=== PATIENT | female | born 1935 | race Caucasian/White ===

== ENCOUNTER → 2017-05-09 | Outpatient (CLI) | payer MEDICARE, BC ==
--- NOTE | 2017-05-09 09:22 | CT ---
EXAMINATION TYPE: CT ChestAbdPelvis w con DATE OF EXAM: 05/09/2017 COMPARISON: NONE HISTORY: elevated liver function test, dysphagia CT DLP: 665.5 mGycm. Automated Exposure Control for Dose Reduction was Utilized. CONTRAST: CT scan of the thorax, abdomen and pelvis is performed with IV Contrast, patient injected with 100 mL of Omnipaque 300. FINDINGS: LUNGS: Multifocal bilateral areas of subpleural groundglass opacity and reticulation are seen in both dependent and nondependent distributions with more focal areas of groundglass opacity in the lingula on series 4 image 32 and left upper lobe on series 4 image 23 and 24 as well as within the right keshia g apex on series 4 image 15 for which surveillance is recommended. Additionally there is a 3 mm spicu lated appearing pulmonary nodule on series 4 image 23 and on coronal image 34 series 7. No pulmonary mass is identified. Biapical pleural thickening is noted. Dependent airspace opacities at the lung ba ses are thought to represent subsegmental atelectasis. Perifissural atelectasis is also noted. Ther e is no pleural effusion or pneumothorax seen. The tracheobronchial tree is patent. Single calcified granuloma is seen with surrounding fibrosis in the lingula on series 4 image 32 MEDIASTINUM: There are multiple prominent lymph nodes measuring 9 mm in short axis in the prevascular space, left paratracheal space, and right paratracheal space. Additionally there is a conglomeration of lymph nodes within the right hilum measuring 1.2 x 2.0 cm. No axillary adenopathy or internal briseyda brittney adenopathy. Cardiac size is within normal limits as is the ascending aorta. Moderate calcific at heromatous changes are seen of the thoracic aorta and great vessels. No pericardial effusion is see n. LIVER/GB: The liver is mildly hypoattenuated in comparison to the splenic parenchyma compatible with mild hepatic steatosis. No intrahepatic biliary ductal dilatation is seen. More focal geographic area of hypoattenuation is seen near the fissure for the ligamentum teres representing superimposed focal fatty infiltration. 2 small to accurately characterize rCommon 4 mm area of hypoattenuation is seen within the left lobe of the liver and series 5 image 14 bile duct is within normal limits for the pat ient's age measuring 7 mm on coronal images. No radiopaque calculi are seen within the gallbladder nenita men. PANCREAS: No pancreatic ductal dilatation. Pancreas enhances homogeneously. SPLEEN: No significant abnormality is seen. ADRENALS: No significant abnormality is seen. KIDNEYS: Kidneys enhance and excrete symmetrically without hydronephrosis. BOWEL: Evaluation of the pelvic structures is limited secondary to extensive spray artifact from bila teral hip prostheses. Remainder of the bowel is unremarkable with no dilation. Appendix is retrocecal and within normal limits of size. LYMPH NODES: No greater than 1cm abdominal or pelvic lymph nodes are appreciated. OSSEOUS STRUCTURES: Grade 2 anterolisthesis of L4 and L5 is seen with pars interarticularis defects a nd endplate sclerosis. Multilevel degenerative endplate changes, facet arthropathy and small anterior osteophytes are seen of the thoracolumbar spine. Bilateral femoral arthroplasties creates spray mary fact and partially obscure surrounding visualization. There is a dextroscoliotic curvature of the lum bar spine. OTHER: Abdominal aorta is of normal course and caliber with moderate atherosclerosis of the abdominal aorta and its branches. IMPRESSION: 1. Findings compatible with mild hepatic steatosis. Additional 2 small to characterize 4 mm hepatic l esion is noted. 2. 3 mm right upper lobe spiculated nodule for which short-term follow-up CT is recommended in 6 darryl hs for evaluation of interval growth. Additionally multifocal groundglass opacities in a subpleural d istribution are favored to represent atelectasis and underlying interstitial lung disease, however kent rveillance is also recommended for these opacities notably within the left upper lobe and right lung apex. 3. Grade 2 anterolisthesis of L4 on L5 secondary to bilateral pars interarticularis defects.
== END ==
LOC: RADCTMAIN 07:11
PROVIDERS: ATTEND Internal Medicine
DX: K76.9 Liver disease, unspecified (principal); R91.1 Solitary pulmonary nodule; J84.9 Interstitial pulmonary disease, unspecified
CPT/HCPCS: 71260; 74177; Q9967

== ENCOUNTER → 2017-05-12 | Outpatient (CLI) | payer MEDICARE, BC ==
--- NOTE | 2017-05-12 11:47 | FL ---
Modified barium swallow. HISTORY: Dysphagia. Modified barium swallow was performed with the department of speech pathology. The patient was prese nted with various consistencies of barium. There is consistent penetration with thin liquid barium. No evidence for aspiration. Ventral spondylo sis C3-4 level. Full report is to follow from the department of speech pathology. Impression: There is consistent penetration with thin liquid barium.
== END | disposition home or self-care (01) ==
LOC: RADFLMAIN 10:40
PROVIDERS: ATTEND Internal Medicine
DX: R13.10 Dysphagia, unspecified (principal)
CPT/HCPCS: 74230

== ENCOUNTER → 2017-06-09 | Outpatient (CLI) | payer MEDICARE, BC ==
--- NOTE | 2017-06-20 11:21 | MM ---
Reason for exam: screening (asymptomatic). Last mammogram was performed 5 years and 2 months ago. History: Patient is postmenopausal. Family history of breast cancer in daughter. 2 benign excisional biopsies of the left breast. Physical Findings: A clinical breast exam by your physician is recommended on an annual basis and results should be correlated with mammographic findings. MG Screening Mammo w CAD Bilateral CC and MLO view(s) were taken. Prior study comparison: April 14, 2012, mammogram, performed at [facility]. August 16, 2010, mammogram, performed at [facility]. The breast tissue is heterogeneously dense. This may lower the sensitivity of mammography. No significant changes when compared with prior studies. ASSESSMENT: Negative, BI-RAD 1 RECOMMENDATION: Routine screening mammogram of both breasts in 1 year.
== END | disposition home or self-care (01) ==
LOC: RADMAMWWP 15:00
PROVIDERS: ATTEND Internal Medicine
DX: Z12.31 Encounter for screening mammogram for malignant neoplasm of breast (principal)

== ENCOUNTER → 2017-08-20 | Outpatient (CLI) | payer MEDICARE, BC ==
[2017-08-20 13:14] LABS: Albumin 4.1 g/dL (3.5-5.0); Bilirubin, Delta 0.3 mg/dL (0.0-0.2); Bilirubin,Unconjugated 0.3 mg/dL (0.0-1.1); Total Bilirubin 0.6 mg/dL (0.2-1.3); Total Protein 7.3 g/dL (6.3-8.2)
== END | disposition home or self-care (01) ==
LOC: LABWHC1 12:05
DX: K76.0 Fatty (change of) liver, not elsewhere classified (principal)
CPT/HCPCS: 36415; 80076; 82105

== ENCOUNTER → 2018-03-30 | Outpatient (CLI) | payer MEDICARE, BC ==
[2018-03-30 11:41] LABS: Basophils # (A) 0.1 k/uL (0-0.2); Basophils % (A) 1 %; Eosinophils # (A) 0.2 k/uL (0-0.7); Eosinophils % (A) 3 %; HCT 39.1 % (34.0-46.0); HGB 13.1 gm/dL (11.4-16.0); Lymphocytes # (A) 1.5 k/uL (1.0-4.8); Lymphocytes % (A) 28 %; MCHC 33.5 g/dL (31.0-37.0); MCV 98.4 fL (80.0-100.0); Mean Platelet Volume 7.1; Monocytes # (A) 0.4 k/uL (0-1.0); Monocytes % (A) 8 %; Neutrophils # (A) 3.1 k/uL (1.3-7.7); Neutrophils % (A) 57 %; Platelet Count 308 k/uL (150-450); RBC 3.97 m/uL (3.80-5.40); RDW 14.4 % (11.5-15.5); WBC 5.5 k/uL (3.8-10.6)
[2018-03-30 11:52] LABS: ALT 19 U/L (9-52); AST 23 U/L (14-36); Albumin 3.8 g/dL (3.5-5.0); Anion Gap 7 mmol/L; Blood Urea Nitrogen 17 mg/dL (7-17); C Reactive Protein <5.0 mg/L (<10.0); Calcium 9.5 mg/dL (8.4-10.2); Carbon Dioxide 26 mmol/L (22-30); Chloride 107 mmol/L (98-107); Potassium 5.1 mmol/L (3.5-5.1); Sodium 140 mmol/L (137-145); Total Bilirubin 0.6 mg/dL (0.2-1.3)
[2018-03-30 14:41] LABS: Erythrocyte Sedimentation Rate 8 mm/hr (0-20)
== END | disposition home or self-care (01) ==
LOC: LABWHC1 10:46
PROVIDERS: ATTEND Internal Medicine Rheumatology
DX: M06.4 Inflammatory polyarthropathy (principal); M05.79 Rheumatoid arthritis with rheumatoid factor of multiple sites without organ or systems involvement
CPT/HCPCS: 36415; 80051; 82040; 82247; 82310; 82565; 84450; 84460; 84520; 85025; 85652; 86140

== ENCOUNTER → 2018-03-30 | Outpatient (CLI) | payer MEDICARE, BC ==
--- NOTE | 2018-03-30 14:09 | CT ---
EXAMINATION TYPE: CT chest abdomen wo con DATE OF EXAM: 03/30/2018 INDICATION: Lung nodule, liver disease COMPARISON: 05/09/2017 CT DLP: 280.8 mGycm CONTRAST: Performed with Oral Contrast TECHNIQUE: Axial images at 5 mm thick sections. Reconstructed images in the coronal plane. Delayed images through the kidneys. FINDINGS: CT CHEST: Portion of the thyroid visualized is normal. A 0.4 cm nodularity is within the periphery of the right upper lobe. Series 4 image 23. This was pres ent previously measuring 0.3 cm. Apical changes are present and stable. An area of pneumonitis in the periphery of the right upper lobe is not evident on the current exam. No enlarged mediastinal or hilar adenopathy is evident. Scattered small lymph nodes are present. The ascending aorta diameter at the level of the main pulmonary artery is 3.6 cm. The main pulmonary artery diameter at the bifurcation is 3.[address] ABDOMEN: Liver: Normal Spleen: Normal Pancreas: Normal Adrenal glands: The adrenal glands are normal. Gallbladder: Normal Kidneys: No masses are evident. No hydronephrosis is present. No cysts are present. No renal stone s are identified. Aorta: Vascular calcification is within the aorta. Inferior vena cava: Normal. Loops of bowel is visualized normal. Some small bowel contrast filled loops are present left upper qu adrant. IMPRESSIONS: 1. Improving pneumonitis changes. 2. There is some persistence of areas of increased density such as a 0.4 cm nodule right upper lobe w hich was previously 0.3 cm and an area of pneumonitis in the posterior lateral left lung base which a ppears stable in size and appearance.
== END ==
LOC: RADCTMAIN 11:29
PROVIDERS: ATTEND Internal Medicine
DX: R91.1 Solitary pulmonary nodule (principal); J18.9 Pneumonia, unspecified organism; K76.89 Other specified diseases of liver
CPT/HCPCS: 71250; 74150

== ENCOUNTER → 2018-06-17 | Outpatient (CLI) | payer MEDICARE, BC ==
--- NOTE | 2018-06-17 13:30 | CT ---
EXAMINATION TYPE: CT brain wo con DATE OF EXAM: 06/17/2018 COMPARISON: 04/30/2017 HISTORY: Cervicalgia; Headache CT DLP: 1124.[address] of the brain was performed. The ventricles, basal cisterns and sulci overlying the cerebral convexities demonstrate mild enlargem ent. There is no evidence for intracranial hemorrhage or sulcal effacement. There is decreased attenuation about the periventricular white matter and deep white matter of both c erebral hemispheres, compatible with chronic small vessel ischemia. Differential diagnosis does inclu de demyelination. No mass effects are seen.No midline shift. Osseous calvarium is intact. If symptoms persist consider MRI. IMPRESSION: 1. Age related atrophic and chronic small vessel ischemic change without acute intracranial process s een at this time.
--- NOTE | 2018-06-17 13:36 | CT ---
EXAMINATION TYPE: CT soft tissue neck wo con DATE OF EXAM: 06/17/2018 COMPARISON: None HISTORY: Cerivacalgia, Headache CT DLP: 220.[address] of the neck was performed from the skull base through the lung apices. AIRWAY: The supraglottic, glottic, and subglottic portions of the airway appear patent and free of mass. SALIVARY GLANDS: The submandibular and parotid glands are free of mass or inflammatory process. THYROID GLAND: No nodules or masses seen. LYMPH NODES: No adenopathy seen greater than 1cm. LUNG APICES: No nodule or mass is seen. OTHER: Vascular structures are patent. Severe degenerative disc space narrowing and spondylosis exte nding from C3-4 through C6-7. Central stenosis suggested at C5-6. No abscess seen. IMPRESSION: 1. Severe degenerative change and spondylosis cervical spine with central stenosis identified at C5-6 .
== END | disposition home or self-care (01) ==
LOC: RADCTMAIN 12:36
PROVIDERS: ATTEND Internal Medicine
DX: M48.02 Spinal stenosis, cervical region (principal); M47.812 Spondylosis without myelopathy or radiculopathy, cervical region; G31.1 Senile degeneration of brain, not elsewhere classified; I67.82 Cerebral ischemia; M06.00 Rheumatoid arthritis without rheumatoid factor, unspecified site
CPT/HCPCS: 70450; 70490

== ENCOUNTER → 2018-08-21 | Outpatient (CLI) | payer MEDICARE, BC ==
[2018-08-21 14:37] LABS: Basophils # (A) 0.1 k/uL (0-0.2); Basophils % (A) 1 %; Eosinophils # (A) 0.1 k/uL (0-0.7); Eosinophils % (A) 2 %; HCT 39.4 % (34.0-46.0); HGB 12.9 gm/dL (11.4-16.0); Lymphocytes % (A) 26 %; MCH 33.2 pg (25.0-35.0); MCHC 32.9 g/dL (31.0-37.0); MCV 101.1 fL (80.0-100.0); Macrocytosis Slight; Mean Platelet Volume 7.6; Monocytes # (A) 0.5 k/uL (0-1.0); Monocytes % (A) 6 %; Neutrophils # (A) 4.8 k/uL (1.3-7.7); Neutrophils % (A) 62 %; Platelet Count 344 k/uL (150-450); RBC 3.89 m/uL (3.80-5.40); RDW 14.3 % (11.5-15.5); WBC 7.8 k/uL (3.8-10.6)
[2018-08-21 19:36] LABS: Albumin 4.1 g/dL (3.80-4.90); Anion Gap 8.3 mmol/L (4.00-12.00); Calcium 9.7 mg/dL (8.7-10.3); Carbon Dioxide 26.7 mmol/L (21.6-31.8); Potassium 4.7 mmol/L (3.5-5.5); Total Bilirubin 0.4 mg/dL (0.3-1.2)
== END | disposition home or self-care (01) ==
LOC: LABWHC1 13:26
PROVIDERS: ATTEND Internal Medicine Rheumatology
DX: M25.50 Pain in unspecified joint (principal); Z79.899 Other long term (current) drug therapy
CPT/HCPCS: 36415; 80051; 82040; 82247; 82310; 82565; 84450; 84460; 84520; 85025

== ENCOUNTER → 2018-10-15 | Outpatient (CLI) | payer MEDICARE, BC ==
--- NOTE | 2018-10-16 14:30 | MM ---
Reason for exam: screening (asymptomatic). Last mammogram was performed 1 year and 4 months ago. History: Patient is postmenopausal. Family history of breast cancer in daughter. 2 benign excisional biopsies of the left breast. Physical Findings: A clinical breast exam by your physician is recommended on an annual basis and results should be correlated with mammographic findings. MG Screening Mammo w CAD Bilateral CC and MLO view(s) were taken. Prior study comparison: June 09, 2017, bilateral MG screening mammo w CAD. April 14, 2012, mammogram, performed at [facility]. The breast tissue is heterogeneously dense. This may lower the sensitivity of mammography. Finding: There is an equal density (isodense), spiculated irregular mass in the subareolar position of the right breast on CC view. Not seen previously, MLO views appear stable. New finding since June 09, 2017 and April 14, 2012. ASSESSMENT: Incomplete: need additional imaging evaluation, BI-RAD 0 RECOMMENDATION: Special view mammogram of the right breast. If lesion persists on supplemental views, image directed ultrasound is recommended. [facility] will attempt to contact patient to return for supplemental views and ultrasound if indicated.
== END | disposition home or self-care (01) ==
LOC: RADMAMWWP 10:35
PROVIDERS: ATTEND Internal Medicine
DX: Z12.31 Encounter for screening mammogram for malignant neoplasm of breast (principal)
CPT/HCPCS: 77067

== ENCOUNTER → 2018-10-21 | Outpatient (CLI) | payer MEDICARE, BC ==
--- NOTE | 2018-10-21 15:10 | MM ---
Reason for exam: additional evaluation requested from abnormal screening. Last mammogram was performed less than 1 month ago. History: Patient is postmenopausal. Family history of breast cancer in daughter. 2 benign excisional biopsies of the left breast. Physical Findings: Nurse did not find any significant physical abnormalities on exam. MG Work Up Mamm w CAD RT Spot compression CC and LM view(s) were taken of the right breast. Prior study comparison: October 15, 2018, bilateral MG screening mammo w CAD. June 09, 2017, bilateral MG screening mammo w CAD. There is no discrete abnormality including area of concern. These results were verbally communicated with the patient and result sheet given to the patient on 10/21/18. ASSESSMENT: Negative, BI-RAD 1 RECOMMENDATION: Return to routine screening mammogram schedule for both breasts.
== END | disposition home or self-care (01) ==
LOC: RADMAMWWP 14:33
PROVIDERS: ATTEND Internal Medicine
DX: R92.8 Other abnormal and inconclusive findings on diagnostic imaging of breast (principal)
CPT/HCPCS: 77065

== ENCOUNTER → 2019-06-14 | Outpatient (CLI) | payer MEDICARE, BC ==
[2019-06-14 11:52] LABS: African American GFR (CKD) >90 (>60 ml/min/1.73 sqM); Blood Urea Nitrogen 15 mg/dL (7-17); Non-African American GFR(CKD) 81 (>60 ml/min/1.73 sqM)
--- NOTE | 2019-06-14 13:38 | CT ---
EXAMINATION TYPE: CT ChestAbdPelvis w con DATE OF EXAM: 06/14/2019 COMPARISON: March 30, 2018 HISTORY: Abnormal weight loss CT DLP: 1713 mGycm CONTRAST: CT scan of the chest, abdomen and pelvis is performed with Oral Contrast and with IV Contrast, patien t injected with 100 mL of Isovue 300. CT Chest: LUNGS: The lungs are clear and free of infiltrate or atelectasis. No pulmonary nodule or mass is det ected. No pleural effusion or CT evidence of interstitial lung disease. MEDIASTINUM: Thoracic aorta is of normal caliber. The heart is not enlarged. No evidence for media stinal mass or adenopathy. Scattered subpleural fibrosis noted. HILAR STRUCTURES: No evidence for mass. No hilar adenopathy is appreciated. OTHER: No significant abnormality. CONTRAST CT ABDOMEN AND PELVIS FINDINGS: LIVER/GB: No calcified gallstones. No space occupying hepatic lesion. Biliary tree is of normal ca liber. PANCREAS: No inflammation. No distinct mass. SPLEEN: No splenic enlargement. No lesion seen. ADRENALS: No nodule. No thickening. KIDNEYS/BLADDER: No hydronephrosis. No nephrolithiasis. No disctinct renal mass. BOWEL: Normal appendix. Normal bowel caliber. No inflammation. GENITAL ORGANS: No gross abnormality. LYMPH NODES: No greater than 1cm abdominal or pelvic lymph nodes are appreciated. AORTA: No significant abnormality. OSSEOUS STRUCTURES: Bilateral hip prosthesis noted. OTHER: No significant additional abnormality is seen. IMPRESSION: 1. No significant abnormality to account for the patient's history of weight loss.
== END | disposition home or self-care (01) ==
LOC: RADCTMAIN 10:00
PROVIDERS: ATTEND Internal Medicine
DX: R63.4 Abnormal weight loss (principal); Z72.0 Tobacco use
CPT/HCPCS: 36415; 71260; 74177; 82565; 84520

== ENCOUNTER → 2020-01-10 | Outpatient (CLI) | payer MEDICARE, BC ==
[2020-01-10 11:25] LABS: HCT 40.8 % (34.0-46.0); HGB 13.1 gm/dL (11.4-16.0); MCH 33.4 pg (25.0-35.0); MCHC 32.2 g/dL (31.0-37.0); MCV 103.5 fL (80.0-100.0); Macrocytosis Slight; Platelet Count 325 k/uL (150-450); RBC 3.94 m/uL (3.80-5.40); RDW 13.9 % (11.5-15.5); WBC 7.4 k/uL (3.8-10.6)
[2020-01-10 16:51] LABS: African American GFR (CKD) 79.6 (60.0-200.0); Anion Gap 6.6 mmol/L (4.00-12.00); Calcium 9.8 mg/dL (8.7-10.3); Carbon Dioxide 26.4 mmol/L (21.6-31.8); Non-African American GFR(CKD) 68.7 (60.0-200.0); Potassium 4.4 mmol/L (3.5-5.5)
[2020-01-10 16:56] LABS: T4, Free (Free Thyroxine) 1.1 ng/dL (0.80-1.80)
== END | disposition home or self-care (01) ==
LOC: LABWHC1 10:22
DX: E78.2 Mixed hyperlipidemia (principal)
CPT/HCPCS: 36415; 80048; 82239; 82550; 82607; 82610; 84439; 84443; 84481; 84550; 85027

== ENCOUNTER → 2020-12-08 | Outpatient (CLI) | payer MEDICARE, BC ==
[2020-12-08 11:40] LABS: HCT 42.2 % (37.2-46.3); MCHC 33.2 g/dL (32.0-37.0); MCV 96.6 fL (80.0-97.0); Mean Platelet Volume 10.9 fL (9.5-12.2); Platelet Count 301 X 10*3/uL (140-440); RBC 4.37 X 10*6/uL (4.10-5.20); RDW 14.2 % (11.5-14.5); WBC 8.34 X 10*3/uL (4.50-10.00)
[2020-12-08 13:14] LABS: T4, Free (Free Thyroxine) 1.1 ng/dL (0.80-1.80)
[2020-12-08 13:37] LABS: Calcium 9.5 mg/dL (8.7-10.3)
[2020-12-08 13:38] LABS: Chol/HDL Ratio 2.69; LDL Cholesterol,Calculated 63.6 mg/dL (0.0-131.0); VLDL Calculation 17.4 mg/dL (5.00-40.00)
== END | disposition home or self-care (01) ==
LOC: LABWHC1 07:23
PROVIDERS: ATTEND Internal Medicine
DX: I10 Essential (primary) hypertension (principal)
CPT/HCPCS: 36415; 80061; 82310; 82550; 84439; 84443; 84450; 84481; 84550; 85027

== ENCOUNTER → 2021-10-18 | Outpatient (CLI) | payer MEDICARE ==
--- NOTE | 2021-10-18 09:33 | CT ---
EXAMINATION TYPE: CT chest wo con DATE OF EXAM: 10/18/2021 COMPARISON: Prior CT June 14, 2019 HISTORY: Cough CT DLP: 169.2 mGycm. Automated Exposure Control for Dose Reduction was Utilized. TECHNIQUE: CT scan of the thorax is performed without IV contrast. FINDINGS: LUNGS: There is moderate to advanced peripheral reticulation and fibrotic changes bilaterally involvi ng the upper lungs through the bases all new or significantly more prominent from the 2019 exam. Some areas of honeycombing in the periphery are seen bilaterally. No pleural effusion or pneumothorax is evident. No suspicious focal consolidation. MEDIASTINUM: Lack of IV contrast is noted to limit evaluation for mediastinal and especially hilar ad enopathy. There are stable prominent borderline enlarged prevascular along with AP window and pericar inal lymph nodes. Mild cardiomegaly redemonstrated. Enlarged pulmonary arteries consistent with under lying pulmonary artery hypertension is again seen. No pericardial effusion. Some calcification at lev el of the mitral and aortic valve along with coronary artery calcification is present. Somewhat small size thyroid. Mild to moderate calcified plaque of the aorta extends into branch vessels. OTHER: Underlying scoliosis. IMPRESSION: Moderate to severe diffuse bilateral pulmonary fibrosis is new or significantly progresse d from the prior study
== END | disposition home or self-care (01) ==
LOC: RADCTMAIN 08:57
PROVIDERS: ATTEND Internal Medicine
DX: J84.10 Pulmonary fibrosis, unspecified (principal)
CPT/HCPCS: 71250

== ENCOUNTER → 2022-01-16 | Outpatient (CLI) | payer MEDICARE ==
[2022-01-16 10:49] LABS: HCT 41.2 % (37.2-46.3); HGB 13.5 g/dL (12.0-15.0); MCH 31.3 pg (27.0-32.0); MCHC 32.8 g/dL (32.0-37.0); MCV 95.6 fL (80.0-97.0); Mean Platelet Volume 10.9 fL (9.5-12.2); NRBC Per 100 WBC 0 /100 WBCS (0.0-0.0); Platelet Count 313 X 10*3/uL (140-440); RBC 4.31 X 10*6/uL (4.10-5.20); RDW 13.8 % (11.5-14.5); WBC 7.13 X 10*3/uL (4.50-10.00)
[2022-01-16 15:02] LABS: African American GFR (CKD) 85.1 (60.0-200.0); Albumin 3.9 g/dL (3.8-4.9); Albumin/Globulin Ratio 1.25 (1.60-3.17); BUN/Creat Ratio 17.65 Ratio (12.00-20.00); Blood Urea Nitrogen 13.2 mg/dL (9.0-27.0); Calcium 9.5 mg/dL (8.7-10.3); Carbon Dioxide 22.8 mmol/L (20.0-27.5); Globulin 3.1 g/dL (1.6-3.3); Non-African American GFR(CKD) 73.4 (60.0-200.0); Potassium 4.2 mmol/L (3.5-5.5); T4, Free (Free Thyroxine) 1.2 ng/dL (0.800-1.800); Total Bilirubin 0.9 mg/dL (0.30-1.20); Uric Acid 4.2 mg/dL (2.9-7.7)
== END | disposition home or self-care (01) ==
LOC: LABWHC1 08:10
PROVIDERS: ATTEND Internal Medicine
DX: I10 Essential (primary) hypertension (principal); E78.2 Mixed hyperlipidemia
CPT/HCPCS: 36415; 80053; 82550; 83721; 84439; 84443; 84550; 85027

== ENCOUNTER 2022-03-11 15:35 | Inpatient (IN) | payer MEDICARE ==
[2022-03-11] MEDS ORDERED: IPRATROPIUM 0.5 MG/2.5 ML NEBU INHALATION STA (16:11)
[2022-03-11] MEDS ORDERED: SODIUM CHLORIDE 0.9% 500 ML 500 ML IV STA (16:11)
[2022-03-11] MEDS ORDERED: ALBUTEROL NEBULIZED 2.5 MG/3 ML INHALATION STA (16:11)
[2022-03-11] MEDS ORDERED: MAGNESIUM SULFATE-D5W PMX 1 GM in DEXTROSE/WATER 1 100ML.BAG IVPB STA (16:11)
[2022-03-11] MEDS ORDERED: methylPREDNISolone SOD SUCCI 125 MG/2 ML VIAL IV STA (16:11)
--- NOTE | 2022-03-11 16:13 | ED ---
SOB HPI - General Chief Complaint: Shortness of Breath Stated Complaint: SOB Time Seen by Provider: 03/11/22 16:04 Source: patient, EMS Mode of arrival: EMS Limitations: no limitations - History of Present Illness Initial Comments: Complaint shortness of breath. She has had a cough for about 9 days. She feels like her symptoms are getting progressively worse. She has not taken any medication to help with the symptoms. She might have had a sick contact a little over a week ago. She has not traveled anywhere. She has no palpitations. She has no chest pain or pressure or tightness. She has no swelling in the arms or legs. - Related Data Home Medications Medication Instructions Recorded Confirmed Aspirin 81 mg PO DAILY 04/30/17 04/30/17 Honorio/D3/Mag11/Zinc/Home Office Claims Examiner/Delfin/Bor 1 tab PO DAILY 04/30/17 04/30/17 [Caltrate 600+D Plus Tablet] Cholecalciferol [Vitamin D3] 1,000 unit PO DAILY 04/30/17 04/30/17 Ciprofloxacin HCl [Cipro] 250 mg PO BID 04/30/17 04/30/17 Folic Acid 1 mg PO DAILY 04/30/17 04/30/17 Multivitamins, Thera [Multivitamin 1 tab PO DAILY 04/30/17 04/30/17 (formulary)] Rosuvastatin Calcium 10 mg PO HS 04/30/17 04/30/17 metHOTREXate sodium [Methotrexate] 12.5 mg PO FR 04/30/17 04/30/17 traMADol HCl [Ultram] 50 - 100 mg PO BID PRN 04/30/17 04/30/17 Previous Rx's Medication Instructions Recorded Hydrocodone/Acetaminophen [[place] 1 each PO Q6HR PRN #20 tab 04/30/17 5-325] Orphenadrine [Norflex] 100 mg PO Q12H #20 tablet.er 04/30/17 Allergies Allergy/AdvReac Type Severity Reaction Status Date / Time Penicillins Allergy Unknown Verified 03/11/22 15:46 Review of Systems ROS Statement: Those systems with pertinent positive or pertinent negative responses have been documented in the HPI. ROS Other: All systems not noted in ROS Statement are negative. Past Medical History Past Medical History: Hyperlipidemia, Osteoarthritis (OA) History of Any Multi-Drug Resistant Organisms: None Reported Past Surgical History: Appendectomy, Hysterectomy Additional Past Surgical History / Comment(s): Bilateral hip replacement, Past Psychological History: No Psychological Hx Reported Smoking Status: Former smoker Past Alcohol Use History: Occasional Past Drug Use History: None Reported General Exam Limitations: no limitations General appearance: alert, in no apparent distress Head exam: Present: atraumatic, normocephalic, normal inspection Eye exam: Present: normal appearance, PERRL, EOMI. Absent: scleral icterus, conjunctival injection, periorbital swelling ENT exam: Present: normal exam, mucous membranes moist Neck exam: Present: normal inspection. Absent: tenderness, meningismus, lymphadenopathy Respiratory exam: Present: wheezes. Absent: rales, rhonchi, stridor Cardiovascular Exam: Present: regular rate, normal rhythm, normal heart sounds. Absent: systolic murmur, diastolic murmur, rubs, gallop, clicks GI/Abdominal exam: Present: soft, normal bowel sounds. Absent: distended, tenderness, guarding, rebound, rigid Extremities exam: Present: normal inspection, full ROM, normal capillary refill. Absent: tenderness, pedal edema, joint swelling, calf tenderness Back exam: Present: normal inspection Neurological exam: Present: alert, oriented X3, CN II-XII intact Psychiatric exam: Present: normal affect, normal mood Skin exam: Present: warm, dry, intact, normal color. Absent: rash Course Vital Signs 03/11/22 03/11/22 03/11/22 15:38 15:46 16:45 Temperature 97.3 F L Pulse Rate 75 74 74 Respiratory 26 H 26 H Rate Blood Pressure 116/72 O2 Sat by Pulse 93 L 94 L Oximetry 03/11/22 03/11/22 17:03 17:16 Temperature Pulse Rate 78 85 Respiratory 24 Rate Blood Pressure 113/65 O2 Sat by Pulse 100 Oximetry Medical Decision Making - Medical Decision Making Patient presents with shortness of breath. She has a long tobacco history, and pulmonary fibrosis as well. Despite treatments, IV steroids and magnesium she has not shown any improvement and is still requiring supplemental oxygen. She will be admitted to the hospital. - Lab Data Result diagrams: 03/11/22 16:00 03/11/22 16:00 Lab Results 03/11/22 03/11/22 03/11/22 Range/Units 16:00 16:00 16:00 WBC 11.2 H (3.8-10.6) k/uL RBC 4.37 (3.80-5.40) m/uL Hgb 14.0 (11.4-16.0) gm/dL Hct 42.1 (34.0-46.0) % MCV 96.4 (80.0-100.0) fL MCH 31.9 (25.0-35.0) pg MCHC 33.1 (31.0-37.0) g/dL RDW 13.1 (11.5-15.5) % Plt Count 303 (150-450) k/uL MPV 8.1 Neutrophils % 44 % Lymphocytes % 24 % Monocytes % 10 % Eosinophils % 18 % Basophils % 1 % Neutrophils # 5.0 (1.3-7.7) k/uL Lymphocytes # 2.7 (1.0-4.8) k/uL Monocytes # 1.1 H (0-1.0) k/uL Eosinophils # 2.0 H (0-0.7) k/uL Basophils # 0.1 (0-0.2) k/uL PT 10.9 (9.0-12.0) sec INR 1.0 (<1.2) APTT 23.8 (22.0-30.0) sec Sodium 135 L (137-145) mmol/L Potassium 3.8 (3.5-5.1) mmol/L Chloride 103 (98-107) mmol/L Carbon Dioxide 22 (22-30) mmol/L Anion Gap 10 mmol/L BUN 8 (7-17) mg/dL Creatinine 0.69 (0.52-1.04) mg/dL Est GFR (CKD-EPI)AfAm >90 (>60 ml/min/1.73 sqM) Est GFR (CKD-EPI)NonAf 80 (>60 ml/min/1.73 sqM) Glucose 106 H (74-99) mg/dL Plasma Lactic Acid Arfi (0.7-2.0) mmol/L Calcium 9.0 (8.4-10.2) mg/dL Magnesium 1.7 (1.6-2.3) mg/dL Total Bilirubin 0.9 (0.2-1.3) mg/dL AST 25 (14-36) U/L ALT 12 (4-34) U/L Alkaline Phosphatase 259 H (38-126) U/L Troponin I (0.000-0.034) ng/mL NT-Pro-B Natriuret Pep pg/mL Total Protein 7.5 (6.3-8.2) g/dL Albumin 3.8 (3.5-5.0) g/dL 03/11/22 03/11/22 03/11/22 Range/Units 16:00 16:00 16:00 WBC (3.8-10.6) k/uL RBC (3.80-5.40) m/uL Hgb (11.4-16.0) gm/dL Hct (34.0-46.0) % MCV (80.0-100.0) fL MCH (25.0-35.0) pg MCHC (31.0-37.0) g/dL RDW (11.5-15.5) % Plt Count (150-450) k/uL MPV Neutrophils % % Lymphocytes % % Monocytes % % Eosinophils % % Basophils % % Neutrophils # (1.3-7.7) k/uL Lymphocytes # (1.0-4.8) k/uL Monocytes # (0-1.0) k/uL Eosinophils # (0-0.7) k/uL Basophils # (0-0.2) k/uL PT (9.0-12.0) sec INR (<1.2) APTT (22.0-30.0) sec Sodium (137-145) mmol/L Potassium (3.5-5.1) mmol/L Chloride (98-107) mmol/L Carbon Dioxide (22-30) mmol/L Anion Gap mmol/L BUN (7-17) mg/dL Creatinine (0.52-1.04) mg/dL Est GFR (CKD-EPI)AfAm (>60 ml/min/1.73 sqM) Est GFR (CKD-EPI)NonAf (>60 ml/min/1.73 sqM) Glucose (74-99) mg/dL Plasma Lactic Acid Rafi 1.3 (0.7-2.0) mmol/L Calcium (8.4-10.2) mg/dL Magnesium (1.6-2.3) mg/dL Total Bilirubin (0.2-1.3) mg/dL AST (14-36) U/L ALT (4-34) U/L Alkaline Phosphatase (38-126) U/L Troponin I <0.012 (0.000-0.034) ng/mL NT-Pro-B Natriuret Pep 110 pg/mL Total Protein (6.3-8.2) g/dL Albumin (3.5-5.0) g/dL 03/11/22 17:23 Twelve-lead EKG shows ventricular rate 74 bpm, normal ME interval, normal QRS complexes, no ST elevation or depression, interpreted by me as normal sinus rhythm. Critical Care Time Critical Care Time: Yes (Initiation of IV magnesium) Total Critical Care Time: 35 Disposition Clinical Impression: COPD (chronic obstructive pulmonary disease) Disposition: ADMITTED IP TO THIS HOSP Is patient prescribed a controlled substance at d/c from ED?: No Referrals: Nonstaff,Physician [Primary Care Provider] - 1-2 days
[2022-03-11 16:19] LABS: Basophils # (A) 0.1 k/uL (0-0.2); Basophils % (A) 1 %; Eosinophils % (A) 18 %; HCT 42.1 % (34.0-46.0); Lymphocytes # (A) 2.7 k/uL (1.0-4.8); Lymphocytes % (A) 24 %; MCH 31.9 pg (25.0-35.0); MCHC 33.1 g/dL (31.0-37.0); MCV 96.4 fL (80.0-100.0); Mean Platelet Volume 8.1; Monocytes # (A) 1.1 k/uL (0-1.0); Monocytes % (A) 10 %; Neutrophils % (A) 44 %; Platelet Count 303 k/uL (150-450); RBC 4.37 m/uL (3.80-5.40); RDW 13.1 % (11.5-15.5); WBC 11.2 k/uL (3.8-10.6)
[2022-03-11 16:24] LABS: ALT 12 U/L (4-34); African American GFR (CKD) >90 (>60 ml/min/1.73 sqM); Albumin 3.8 g/dL (3.5-5.0); Anion Gap 10 mmol/L; Blood Urea Nitrogen 8 mg/dL (7-17); Carbon Dioxide 22 mmol/L (22-30); Chloride 103 mmol/L (98-107); Glucose 106 mg/dL (74-99); Non-African American GFR(CKD) 80 (>60 ml/min/1.73 sqM); Sodium 135 mmol/L (137-145); Total Bilirubin 0.9 mg/dL (0.2-1.3); Total Protein 7.5 g/dL (6.3-8.2)
[2022-03-11 16:26] LABS: AST 25 U/L (14-36); Alkaline Phosphatase 259 U/L (38-126); Magnesium 1.7 mg/dL (1.6-2.3); Potassium 3.8 mmol/L (3.5-5.1)
[2022-03-11 16:28] LABS: Partial Thromboplastin Time 23.8 sec (22.0-30.0); Prothrombin Time 10.9 sec (9.0-12.0)
--- NOTE | 2022-03-11 17:09 | XR ---
EXAMINATION TYPE: XR chest 2V DATE OF EXAM: 03/11/2022 4:37 PM COMPARISON: CT chest 10/18/2021. TECHNIQUE: XR chest 2V Frontal and lateral views of the chest. CLINICAL INDICATION:Female, 87 years old with history of difficulty breathing; FINDINGS: Lungs/Pleura: Increased interstitial lung markings which is similar given differences in technique to 10/10/2021.. There is no evidence of pleural effusion, or pneumothorax. Pulmonary vascularity: Unremarkable. Heart/mediastinum: Cardiomediastinal silhouette is unremarkable. Musculoskeletal: No acute osseous pathology. IMPRESSION: Suspected COPD with pulmonary fibrosis, findings throughout the lungs likely represent atelectasis/st reaky scarring given prior CT findings.
[2022-03-11] MEDS ORDERED: TEMAZEPAM 15 MG CAP PO PRN (18:22)
[2022-03-11] MEDS ORDERED: DOCUSATE 100 MG CAP PO PRN (18:22)
[2022-03-11] MEDS ORDERED: ALPRAZolam 0.25 MG TAB PO PRN (18:22)
[2022-03-11] MEDS ORDERED: MAG HYDROX/AL HYDROX/SIMETH 30 ML CUP PO PRN (18:22)
[2022-03-11] MEDS ORDERED: ONDANSETRON 4 MG/2 ML VIAL IVP PRN (18:22)
[2022-03-11] MEDS ORDERED: NALOXONE 0.4 MG/ML 1 ML VIAL IV PRN (18:22)
[2022-03-11] MEDS ORDERED: ORPHENADRINE 100 MG PO SCH (18:30)
[2022-03-12] MEDS ORDERED: IPRATROPIUM-ALBUTEROL 3 ML NEB INHALATION PRN (02:58)
--- NOTE | 2022-03-12 03:00 | P.HPIM ---
History of Present Illness H&P Date: 03/11/22 Chief Complaint: shortness of breath 87 year old female with pulmonary fibrosis not on home oxygen and long history of smoking patient comes in with 1-2 weeks history of progressive shortness of breath , denies orthopnea, or PNDs, but reports progressive productive cough over the past 10 days along with difficulty breathing, denies any fever, chills, chest pain , hemoptysis , denies any abd pain nausea vomiting or GI bleeding , denies any changes in her bowel or urinary changes. she denies any recent travel or hospital stay , she is not aware of sick contacts. she comes in today due to severe SOB, requiring multiple breathing treatments and steroids in the ED. imaging showed COPD changes and pulmonary fibrosis in line with prior findings on CT of the chest blood work overall unremarkable patient quit smoking 1 month ago, otherwise denies any drugs or alcohol consumption vaccinated against covid Review of Systems Pertinent positives as noted in HPI. All other systems were reviewed and are negative Past Medical History Past Medical History: Hyperlipidemia, Osteoarthritis (OA) History of Any Multi-Drug Resistant Organisms: None Reported Past Surgical History: Appendectomy, Hysterectomy Additional Past Surgical History / Comment(s): Bilateral hip replacement Past Psychological History: No Psychological Hx Reported Smoking Status: Former smoker Past Alcohol Use History: Occasional Additional Past Alcohol Use History / Comment(s): Pt quit smoking 1 month ago. Past Drug Use History: None Reported - Past Family History family Additional Family Medical History / Comment(s): denies history of cancer Medications and Allergies Home Medications Medication Instructions Recorded Confirmed Type Atorvastatin Calcium [Lipitor] 40 mg PO DAILY 03/11/22 03/11/22 History Calcium Carbonate [Calcium] 600 mg PO DAILY 03/11/22 03/11/22 History Cholecalciferol [Vitamin D3 (25 25 mcg PO DAILY 03/11/22 03/11/22 History Mcg = 1000 Iu)] Allergies Allergy/AdvReac Type Severity Reaction Status Date / Time Penicillins Allergy Unknown Verified 03/11/22 18:29 Childhood Physical Exam Vitals: Vital Signs Temp Pulse Pulse Resp BP BP Pulse Ox 03/11/22 20:40 97.8 F 100 19 144/85 94 L 03/11/22 20:00 24 03/11/22 17:16 85 03/11/22 17:03 78 24 113/65 100 09/19/22 16:45 74 03/11/22 15:46 74 26 H 94 L 03/11/22 15:38 97.3 F L 75 26 H 116/72 93 L Intake and Output 03/11/22 03/11/22 03/12/22 14:59 22:59 06:59 Other: Voiding Method Toilet # Voids 1 Weight 63.503 kg Constitutional: No acute distress, slightly confused, cooperative Eyes: Anicteric sclerae, moist conjunctiva, Pupils equal round reactive to light ENMT: NC/AT Oropharynx clear, no erythema, or exudates Neck: Supple, no masses, or JVD No carotid bruits No thyromegaly Lungs: diminished breath sounds , with coarse rhonci and expiratory wheezing Clear to percussion Normal respiratory effort, no accessory muscle use Cardiovascular: Heart regular in rate and rhythm, No murmurs, gallops, or rubs No peripheral edema Abdominal: Soft Nontender, no guarding, rebound or rigidity Abdomen moving with respiration Normoactive bowel sounds No hepatomegaly, No splenomegaly No palpable mass No abdominal wall hernia noted Skin: Normal temperature, tone, texture, turgor No induration No subcutaneous nodules No rash, lesions No ulcers Extremities: No digital cyanosis No clubbing Pedal pulses intact and symmetrical Radial pulses intact and symmetrical No calf tenderness Psychiatric: Alert and oriented to person, place and time Neuro Muscles Strength 5/5 in all 4 extremities Sensation to light touch grossly present throughout Cranial nerves II-XII grossly intact No focal sensory deficits Lymphatics: no palpable cervical or supraclavicular , or inguinal lymph nodes Results CBC & Chem 7: 03/11/22 16:00 03/11/22 16:00 Labs: Abnormal Lab Results - Last 24 Hours (Table) 03/11/22 03/11/22 Range/Units 16:00 16:00 WBC 11.2 H (3.8-10.6) k/uL Monocytes # 1.1 H (0-1.0) k/uL Eosinophils # 2.0 H (0-0.7) k/uL Sodium 135 L (137-145) mmol/L Glucose 106 H (74-99) mg/dL Alkaline Phosphatase 259 H (38-126) U/L Thrombosis Risk Factor Assmnt - Choose All That Apply Each Factor Represents 1 point: Abnormal pulmonary function (COPD) Each Risk Factor Represents 3 Points: Age 75 years or older Thrombosis Risk Factor Assessment Total Risk Factor Score: 4 Thrombosis Risk Factor Assessment Level: Moderate Risk Assessment and Plan Assessment: acute COPD exacerbation pulmonary fibrosis systemic steroids doxycycline BID check covid supplemental oxygen as needed recent CT of the chest showed pulmonary fibrosis pulmonary consult monitor vital signs symptomatic control of cough duonebs PRN and scheduled chronic conditions hyperlipidemia , statin DVT PPX heparin sc tid DNR
[2022-03-12] MEDS: methylPREDNISolone SOD SUCCI 125 MG/2 ML VIAL IV SCH ×3 (03:27→16:16)
[2022-03-12] MEDS: BENZONATATE 100 MG CAP PO PRN ×2 (03:28→12:33)
[2022-03-12] MEDS: IPRATROPIUM-ALBUTEROL 3 ML NEB INHALATION SCH ×3 (08:04→15:34)
[2022-03-12] MEDS ORDERED: FOLIC ACID 1 MG TAB PO SCH (09:00)
[2022-03-12] MEDS ORDERED: ATORVASTATIN 40 MG TAB PO SCH (09:00)
[2022-03-12] MEDS ORDERED: ASPIRIN 81 MG PO SCH (09:00)
[2022-03-12] MEDS ORDERED: DOXYCYCLINE 100 MG CAP PO SCH (09:00)
[2022-03-12] MEDS ORDERED: MULTIVITAMINS, THERA 1 EACH TAB PO SCH (09:00)
[2022-03-12] MEDS ORDERED: CHOLECALCIFEROL 25 MCG (1000 IU) TABLET PO SCH (09:00)
[2022-03-12] MEDS: HEPARIN SODIUM,PORCINE/PF 5,000 UNIT/0.5 ML SYRINGE SQ SCH ×2 (09:00→16:16)
[2022-03-12 09:08] VITALS: RESP 18
[2022-03-12] MEDS ORDERED: CALCIUM CARBONATE 500 MG CHEWABLE PO SCH (12:00)
[2022-03-12 13:10] VITALS: BP 125/67; TEMP 97.4
[2022-03-12 14:14] VITALS: PULSE 77
--- NOTE | 2022-03-12 14:57 | CT ---
EXAMINATION TYPE: CT angio chest CT DLP: 199.9 mGycm, Automated exposure control for dose reduction was used. DATE OF EXAM: 03/12/2022 2:42 PM COMPARISON: CT chest 10/18/2021. CLINICAL INDICATION:Female, 87 years old with history of pulmonary fibrosis; TECHNIQUE/CONTRAST: CTA scan of the thorax is performed after the uneventful administration of 100 cc of Isovue-370 intra venously.MIP images are created and reviewed. FINDINGS: Lungs/Pleura: Biapical pleural-parenchymal scarring. Relatively similar moderate to advanced peripher al reticulation and fibrotic changes bilaterally involving the upper lungs through the bases. Similar areas of honeycombing in the periphery bilaterally. No pleural effusion or pneumothorax. No suspicio us focal consolidation. Airway: Large airways are patent. Heart: Mildly enlarged in size. No pericardial effusion. Coronary arterial calcification. Vasculature: No evidence of aortic aneurysm. Atherosclerotic calcification of the aorta. Dilated main pulmonary artery measuring up to 3.8 cm. No filling defect demonstrated within the pulmonary arterie s to suggest pulmonary arterial embolism. Mediastinum: Stable prominent to enlarged mediastinal lymph nodes with example including a 1.2 cm phoebe rt axis precarinal left (series 4, image 58). Musculoskeletal: No acute osseous abnormalities. No aggressive osseous lesion. Bilateral shoulder art hropathy. Soft Tissues: Unremarkable. Lower neck: No significant findings. Upper Abdomen: No significant findings. IMPRESSION: 1. No evidence of pulmonary embolism. 2. Similar moderate to severe diffuse bilateral pulmonary fibrosis. 3. Stable prominent to enlarged nonspecific mediastinal lymph nodes.
--- NOTE | 2022-03-12 15:07 | P.PN ---
Subjective Progress Note Date: 03/12/22 Principal diagnosis: COPD exacerbation Patient stated that she is feeling better today compared to yesterday Patient worked with physical therapy and was deemed stable to go home. Patient had home O2 eval and she did qualify for oxygen Patient does have some wheezing on exam. 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 Psych - Calm and cooperative - Labs CBC & Chem 7: 03/11/22 16:00 03/11/22 16:00 Labs: Abnormal Lab Results - Last 24 Hours (Table) 03/11/22 03/11/22 Range/Units 16:00 16:00 WBC 11.2 H (3.8-10.6) k/uL Monocytes # 1.1 H (0-1.0) k/uL Eosinophils # 2.0 H (0-0.7) k/uL Sodium 135 L (137-145) mmol/L Glucose 106 H (74-99) mg/dL Alkaline Phosphatase 259 H (38-126) U/L Assessment and Plan Assessment: Acute COPD exacerbation [place] fibrosis Resume systemic steroids Doxycycline twice a day In the ED patient was 88% on room air Resume O2 as needed Pulmonology consult Patient daughter was at bedside and she states that her mink rancher is in [place] She stated that they would like to transfer services close to [place]. They're also wondering if patient can have a bronchoscopy done while she is here since he was recommended by her mink rancher. Check CTA chest to rule out pulmonary embolism Overall patient states that she's feeling better since admission Patient currently on 2 L nasal cannula and is satting well. Wean O2 as kait erated Patient had home O2 eval and she'll qualify for oxygen on 2 L DuoNeb when necessary and scheduled Chronic conditions Hyperlipidemia: Resume statin DVT prophylaxis subcu heparin DO NOT RESUSCITATE
--- NOTE | 2022-03-12 15:23 | P.CNPUL ---
History of Present Illness Consult date: 03/12/22 Reason for consult: dyspnea History of present illness: 87-year-old female patient was hospitalized yesterday because of shortness of breath. The patient's chronic dyspnea. She is a poor historian. She thought that the reading was on and off was progressively getting worse and for that reason she presented to the hospital. She has a dry cough. Abdomen the white sputum. No pleurisy. No hemoptysis. No chest pain. No swelling lower ext remities. No history of any chest pain no swelling in lower extremities. She is an ex-smoker and she quit smoking after smoking about 40-50 years. I reviewed her CAT scan of the chest that was done September 2021 it was consistent with pulmonary fibrosis with lower lobe predominance and subpleural distribution consistent with IPF. I also compared this to earlier CAT scan of the chest was done on this patient in 2018 and 2019 and there is obvious progression of his pulmonary fibrosis. The patient was not aware of this diagnosis. She has not seen a crop pest control specialist in the past. No recurrent pneumonias. 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 She is fully vaccinated for COVID 19 virus. In emergency, the patient was afebrile. The white cell count was 11 with a hemoglobin of 14 and a platelet count of 303. Normal coagulation profile. D- dimer was 0.56. Electrolytes were all within normal limits and the COVID 19 testing by PCR came back negative. ProBNP level is 110 and troponin was negative. Review of Systems Constitutional: Reports fatigue, Reports weakness Eyes: denies as per HPI, denies blurred vision, denies bulging eye, denies decreased vision, denies diplopia, denies discharge, denies dry eye, denies irritation, denies itching, denies pain, denies photophobia, denies loss of peripheral vision, denies loss of vision, denies tunnel vision/blind spots Ears: deny: decreased hearing, ear discharge, earache, tinnitus Ears, nose, mouth and throat: Reports as per HPI Breasts: absent: as per HPI, change in shape, gynecomastia, masses, nipple discharge, pain, skin changes, swelling Cardiovascular: Reports decreased exercise tolerance, Reports dyspnea on exertion Respiratory: Reports cough, Reports dyspnea Gastrointestinal: Reports as per HPI Menstruation: Reports as per HPI Musculoskeletal: Reports as per HPI Musculoskeletal: absent: ankle pain, ankle stiffness, ankle swelling Integumentary: Reports as per HPI Neurological: Reports as per HPI Psychiatric: Reports as per HPI Endocrine: Reports as per HPI, Reports fatigue Hematologic/Lymphatic: Reports as per HPI Allergic/Immunologic: Reports as per HPI Past Medical History Past Medical History: Hyperlipidemia, Osteoarthritis (OA) History of Any Multi-Drug Resistant Organisms: None Reported Past Surgical History: Appendectomy, Hysterectomy Additional Past Surgical History / Comment(s): Bilateral hip replacement Past Psychological History: No Psychological Hx Reported Smoking Status: Former smoker Past Alcohol Use History: Occasional Additional Past Alcohol Use History / Comment(s): Pt quit smoking 1 month ago. Past Drug Use History: None Reported - Past Family History family Additional Family Medical History / Comment(s): denies history of cancer Medications and Allergies Home Medications Medication Instructions Recorded Confirmed Type Atorvastatin Calcium [Lipitor] 40 mg PO DAILY 03/11/22 03/11/22 History Calcium Carbonate [Calcium] 600 mg PO DAILY 03/11/22 03/11/22 History Cholecalciferol [Vitamin D3 (25 25 mcg PO DAILY 03/11/22 03/11/22 History Mcg = 1000 Iu)] Allergies Allergy/AdvReac Type Severity Reaction Status Date / Time Penicillins Allergy Unknown Verified 03/11/22 18:29 Childhood Physical Exam Vitals: Vital Signs Temp Pulse Pulse Pulse Pulse Pulse Pulse 03/12/22 14:12 90 88 77 108 H 03/12/22 13:09 97.4 F L 83 03/12/22 11:32 65 03/12/22 11:24 03/12/22 11:21 63 03/12/22 07:00 97.9 F 67 03/12/22 01:21 97.5 F L 82 03/11/22 20:40 97.8 F 100 03/11/22 20:00 03/11/22 17:16 85 03/11/22 17:03 78 03/11/22 16:45 74 03/11/22 15:46 74 03/11/22 15:38 97.3 F L 75 Resp BP BP Pulse Ox Pulse Ox Pulse Ox Pulse Ox 03/12/22 14:12 96 94 L 94 L 03/12/22 13:09 18 125/67 92 L 03/12/22 11:32 03/12/22 11:24 97 03/12/22 11:21 03/12/22 07:00 18 119/73 94 L 03/12/22 01:21 19 127/74 94 L 03/11/22 20:40 19 144/85 94 L 03/11/22 20:00 24 03/11/22 17:16 03/11/22 17:03 24 113/65 100 03/11/22 16:45 03/11/22 15:46 26 H 94 L 03/11/22 15:38 26 H 116/72 93 L Pulse Ox 03/12/22 14:12 88 L 03/12/22 13:09 03/12/22 11:32 03/12/22 11:24 03/12/22 11:21 03/12/22 07:00 03/12/22 01:21 03/11/22 20:40 03/11/22 20:00 03/11/22 17:16 03/11/22 17:03 03/11/22 16:45 03/11/22 15:46 03/11/22 15:38 Intake and Output 03/12/22 03/12/22 03/12/22 06:59 14:59 22:59 Intake Total 358 Balance 358 Intake: Oral 358 Other: Voiding Method Toilet # Voids 2 2 The patient appeared well nourished and normally developed. Vital signs as documented. Head exam is unremarkable. Head exam was generally normal. There was no scleral icterus or corneal arcus. Mucous membranes were moist. No scleral icterus or corneal arcus noted. Neck is without jugular venous distension, thyromegaly, or carotid bruits. Carotid upstrokes are brisk bilaterally. Lungs reveals coarse crackles in the lung bases bilaterally and the patient has Velcro crackles typical of point fibrosis. Cardiac exam reveals the PMI to be normally sized and situated. Rhythm is regular. First and second heart sounds normal. No murmurs, rubs or gallops. Abdominal exam reveals normal bowel sounds, no masses, no organomegaly and no aortic enlargement. Extremities are nonedematous and both femoral and pedal pulses are normal. Examination of the skin revealed no evidence of significant rashes, suspicious appearing nevi or other concerning lesions.Neurologically, the patient is awake and alert and the patient does not have any focal neurological deficit. Cranial nerves are essentially intact. Examination of the skin revealed no evidence of significant rashes, suspicious appearing nevi or other concerning lesions. 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 Patient has chronic dyspnea secondary to poor and fibrosis and the patient has been progressively getting worse and this is clearly indicated and the various CAT scan was done between 2016 and 2021. A CTA that was done of the chest today showed bilateral pleural parenchymal scarring with lower lobe distribution subpleural with honeycombing typical of IPF. No evidence of any pneumonia. No evidence of any other acute abnormalities causing decompensation including pulmonary embolism. Chronic hypoxic respiratory failure, not feeling good for oxygen supplementation yet Chronic cough secondary to above Hypertension Hyperlipidemia Ex-smoker Plan Reviewed the CAT scan of the chest and the patient is having natural progression of IPF with progressive fibrosis and progressive dyspnea Outpatient management of IPF including the possibility of antibiotic treatment Evaluate for home O2, in my opinion not a candidate yet Outpatient PFT CTA of the chest was noted and there is no evidence of any pulmonary embolism or pneumonia May be able to discharge home. No need for steroids. Give appropriate ov [id number] Medication to suppress cough. No need for antibiotics. No need for steroids. Will follow up on outpatient basis
--- NOTE | 2022-03-12 15:34 | P.DS ---
Providers Date of admission: 03/11/22 18:22 Expected date of discharge: 03/12/22 Attending physician: Azeb Lewis DO Consults: 03/12/22 01:41 Consult Physician Routine Consulting Provider: Ella Glover Consult Reason/Comments: progressive pulmonary fibrosis Do you want consulting provider notified?: Yes, Notify in am Primary care physician: Physician Nonstaff Hospital Course: Discharge Diagnosis: Pulmonary fibrosis COPD Hyperlipidemia Hospital Course: Patient is a 87-year-old female with a past medical history of hyperlipidemia who presents to the ED with shortness of breath. Chest x-ray was consistent with COPD implement fibrosis. Pulmonology following the patient. Patient had a CTA of her chest that was negative for PE but did show findings of pulmonary fibrosis. Per pulmonology patient is stable for discharge. Also per pulmonology no need for steroids or antibiotics. Patient had home O2 eval and she qualified for 2 L oxygen. alteration manager arranged for oxygen. PT OT deemed the patient is stable to go home. Patient seen and examined at bedside.[] Please see my progress note for physical exam A total of [33] minutes of time were spent preparing this complex discharge summary . Plan - Discharge Summary New Discharge Prescriptions: Continue Calcium Carbonate [Calcium] 600 mg PO DAILY Cholecalciferol [Vitamin D3 (25 Mcg = 1000 Iu)] 25 mcg PO DAILY Atorvastatin Calcium [Lipitor] 40 mg PO DAILY Discharge Medication List Atorvastatin Calcium [Lipitor] 40 mg PO DAILY 03/11/22 [History] Calcium Carbonate [Calcium] 600 mg PO DAILY 03/11/22 [History] Cholecalciferol [Vitamin D3 (25 Mcg = 1000 Iu)] 25 mcg PO DAILY 03/11/22 [History] Follow up Appointment(s)/Referral(s): Nonstaff,Physician [Primary Care Provider] - 1-2 days Ella Glover MD [STAFF PHYSICIAN] - 1 Week Patient Instructions/Handouts: Pulmonary Fibrosis (DC) Discharge Disposition: HOME SELF-CARE
[2022-03-15] MEDS ORDERED: metHOTREXate sodium 2.5 MG TAB PO SCH (18:23)
== END 2022-03-12 16:38 | disposition home or self-care (01) | DRG 191 ==
LOC: EC 15:35 → 6NMEDSUR 18:22 → OBSVTOIN 18:22 → 6NMEDSUR 19:56 → UNDODISOB 03-12 16:38
PROVIDERS: ADMIT Internal Medicine; ATTEND Internal Medicine
DX: J44.1 Chronic obstructive pulmonary disease with (acute) exacerbation (principal); J96.11 Chronic respiratory failure with hypoxia; J84.10 Pulmonary fibrosis, unspecified; Z66 Do not resuscitate; Z20.822 Contact with and (suspected) exposure to COVID-19; I10 Essential (primary) hypertension; E78.5 Hyperlipidemia, unspecified; M19.90 Unspecified osteoarthritis, unspecified site; Z79.82 Long term (current) use of aspirin; Z79.899 Other long term (current) drug therapy; Z87.891 Personal history of nicotine dependence; Z96.643 Presence of artificial hip joint, bilateral; Z88.0 Allergy status to penicillin
CPT/HCPCS: 36415; 71046; 71275; 80053; 83605; 83735; 83880; 84484; 85025; 85379; 85610; 85730; 87635; 93005; 94640; 94760; 96365; 96372; 96375; 96376; 99291

== ENCOUNTER → 2022-10-04 | Outpatient (CLI) | payer MEDICARE ==
[2022-10-04 15:13] LABS: HCT 42.9 % (37.2-46.3); HGB 14.4 g/dL (12.0-15.0); MCH 32.4 pg (27.0-32.0); MCHC 33.6 g/dL (32.0-37.0); MCV 96.4 fL (80.0-97.0); Mean Platelet Volume 10.6 fL (9.5-12.2); NRBC Per 100 WBC 0 /100 WBCS (0.0-0.0); Platelet Count 283 X 10*3/uL (140-440); RBC 4.45 X 10*6/uL (4.10-5.20); RDW 13.3 % (11.5-14.5); WBC 6.34 X 10*3/uL (4.50-10.00)
[2022-10-04 15:49] LABS: ALT 16 U/L (8-44); AST 19 U/L (13-35); African American GFR (CKD) 59.5 (60.0-200.0); Albumin 4.1 g/dL (3.8-4.9); Albumin/Globulin Ratio 1.37 (1.60-3.17); Alkaline Phosphatase 159 U/L (41-126); Blood Urea Nitrogen 15.1 mg/dL (9.0-27.0); Calcium 9.5 mg/dL (8.7-10.3); Carbon Dioxide 23.2 mmol/L (20.0-27.5); Chloride 107 mmol/L (96-109); Chol/HDL Ratio 2.27 Ratio; Glucose 94 mg/dL (70-110); LDL Cholesterol,Calculated 61.5 mg/dL (0.0-131.0); Non-African American GFR(CKD) 51.3 (60.0-200.0); Potassium 4.2 mmol/L (3.5-5.5); Sodium 141 mmol/L (135-145); Total Protein 7.1 g/dL (6.2-8.2)
== END | disposition home or self-care (01) ==
LOC: LABWHC1 08:22
PROVIDERS: ATTEND Internal Medicine
DX: D51.0 Vitamin B12 deficiency anemia due to intrinsic factor deficiency (principal); M06.00 Rheumatoid arthritis without rheumatoid factor, unspecified site
CPT/HCPCS: 36415; 80053; 80061; 85027

== ENCOUNTER → 2023-04-21 | Outpatient (CLI) | payer MEDICARE ==
[2023-04-21 16:15] LABS: HCT 42.8 % (37.2-46.3); HGB 14.1 d/dL (12.0-15.0); MCH 31.7 pg (27.0-32.0); MCHC 32.9 d/dL (32.0-37.0); MCV 96.2 FL (80.0-97.0); Mean Platelet Volume 10.6 FL (9.5-12.2); NRBC Per 100 WBC 0.02 X 10*3/uL (0.00-0.01); Platelet Count 335 X 10*3/uL (140-440); RBC 4.45 X 10*6/uL (4.10-5.20); RDW 13.3 % (11.5-14.5); WBC 6.11 X 10*3/uL (4.50-10.00)
[2023-04-21 16:18] LABS: ALT 14 U/L (8-44); AST 17 U/L (13-35); Albumin/Globulin Ratio 1.43 Ratio (1.60-3.17); Alkaline Phosphatase 167 U/L (41-126); Blood Urea Nitrogen 16.4 mg/dL (9.0-27.0); Calcium 9.7 mg/dL (8.7-10.3); Carbon Dioxide 24.7 mmol/L (21.6-31.8); Chloride 106 mmol/L (96-109); Chol/HDL Ratio 2.29 Ratio; Globulin 2.8 d/dL (1.6-3.3); Glucose 100 mg/dL (70-110); LDL Cholesterol,Calculated 55.7 mg/dL (0.0-131.0); Potassium 4.3 mmol/L (3.5-5.5); Sodium 142 mmol/L (135-145); T4, Free (Free Thyroxine) 1.26 ng/dL (0.80-1.80); Total Bilirubin 0.6 mg/dL (0.3-1.2); Total Protein 6.8 d/dL (6.2-8.2); Uric Acid 4.3 mg/dL (2.9-7.7); VLDL Calculation 15.22 mg/dL (5.00-40.00)
== END | disposition home or self-care (01) ==
LOC: LABWHC1 08:32
PROVIDERS: ATTEND Internal Medicine
DX: I10 Essential (primary) hypertension (principal); I25.10 Atherosclerotic heart disease of native coronary artery without angina pectoris; E78.2 Mixed hyperlipidemia
CPT/HCPCS: 36415; 80053; 80061; 82306; 82607; 84439; 84443; 84550; 85027

== ENCOUNTER → 2023-11-25 | Outpatient (CLI) | payer MEDICARE ==
[2023-11-25 15:05] LABS: HGB 14.2 g/dL (12.0-15.0); MCH 32.1 pg (27.0-32.0); MCV 97.1 FL (80.0-97.0); Mean Platelet Volume 10.9 FL (9.5-12.2); NRBC Per 100 WBC 0 X 10*3/uL (0.00-0.01); Platelet Count 274 X 10*3/uL (140-440); RBC 4.43 X 10*6/uL (4.10-5.20); WBC 7.23 X 10*3/uL (4.50-10.00)
[2023-11-25 15:49] LABS: Chol/HDL Ratio 2.61 Ratio; LDL Cholesterol,Calculated 76.7 mg/dL (0.0-131.0); Uric Acid 4.2 mg/dL (2.9-7.7); VLDL Calculation 16.98 mg/dL (5.00-40.00)
[2023-11-25 15:50] LABS: T4, Free (Free Thyroxine) 1.25 ng/dL (0.80-1.80)
[2023-11-25 16:13] LABS: ALT 14 U/L (8-44); AST 21 U/L (13-35); Albumin 4.1 g/dL (3.8-4.9); Albumin/Globulin Ratio 1.46 Ratio (1.60-3.17); Alkaline Phosphatase 156 U/L (41-126); BUN/Creat Ratio 15.38 Ratio (12.00-20.00); Blood Urea Nitrogen 12.3 mg/dL (9.0-27.0); Calcium 9.5 mg/dL (8.7-10.3); Carbon Dioxide 21.2 mmol/L (21.6-31.8); Chloride 109 mmol/L (96-109); Globulin 2.8 g/dL (1.6-3.3); Glucose 101 mg/dL (70-110); Potassium 4.5 mmol/L (3.5-5.5); Sodium 144 mmol/L (135-145); Total Bilirubin 0.7 mg/dL (0.3-1.2); Total Protein 6.9 g/dL (6.2-8.2)
== END | disposition home or self-care (01) ==
LOC: LABWHC1 08:07
PROVIDERS: ATTEND Internal Medicine
DX: I10 Essential (primary) hypertension (principal); E78.2 Mixed hyperlipidemia
CPT/HCPCS: 36415; 80053; 80061; 82306; 82607; 84439; 84443; 84550; 85027

== ENCOUNTER 2024-01-31 01:47 | Emergency (ER) | payer MEDICARE ==
[2024-01-31] MEDS ORDERED: predniSONE 20 MG TAB ONE (03:09)
[2024-01-31] MEDS ORDERED: AZITHROMYCIN 500 MG TAB ONE (06:10)
--- NOTE | 2024-03-22 13:16 | XR ---
EXAMINATION TYPE: XR chest 2V DATE OF EXAM: 03/17/2024 COMPARISON: 03/11/2022 INDICATION: Difficulty in breathing TECHNIQUE: Frontal and lateral views of the chest are obtained. FINDINGS: The heart size is normal. The pulmonary vasculature is normal. Nonspecific diffuse increased lung markings are present bilaterally. Correlate for atelectasis and pn eumonia. Consider atypical pneumonia. This is similar to slightly improved over the interval. IMPRESSION: 1. Diffuse increased lung markings bilaterally. Correlate for atypical pneumonia. Continued follow-up recommended. [facility], , 03/19/2024 8:52 AM
== END 2024-01-31 06:35 | disposition home or self-care (01) ==
LOC: EC 01:47
CPT/HCPCS: 71046; 93005; 99285

== ENCOUNTER → 2024-05-11 | Outpatient (CLI) | payer MEDICARE ==
[2024-05-11 15:41] LABS: ALT 12 U/L (8-44); AST 18 U/L (13-35); Albumin/Globulin Ratio 1.48 Ratio (1.60-3.17); Alkaline Phosphatase 164 U/L (41-126); BUN/Creat Ratio 19.75 Ratio (12.00-20.00); Blood Urea Nitrogen 15.8 mg/dL (9.0-27.0); Calcium 9.7 mg/dL (8.7-10.3); Carbon Dioxide 21.9 mmol/L (21.6-31.8); Chloride 106 mmol/L (96-109); Chol/HDL Ratio 2.27 Ratio; Globulin 2.7 g/dL (1.6-3.3); Glucose 100 mg/dL (70-110); LDL Cholesterol,Calculated 61.6 mg/dL (0.0-131.0); Potassium 5.2 mmol/L (3.5-5.5); Sodium 141 mmol/L (135-145); Total Bilirubin 0.8 mg/dL (0.3-1.2); Total Protein 6.7 g/dL (6.2-8.2); VLDL Calculation 14.38 mg/dL (5.00-40.00)
[2024-05-11 16:16] LABS: HCT 40.5 % (37.2-46.3); HGB 13.3 g/dL (12.0-15.0); MCH 31.2 pg (27.0-32.0); MCHC 32.8 g/dL (32.0-37.0); MCV 95.1 FL (80.0-97.0); Mean Platelet Volume 11.2 FL (9.5-12.2); NRBC Per 100 WBC 0 X 10*3/uL (0.00-0.01); Platelet Count 288 X 10*3/uL (140-440); RBC 4.26 X 10*6/uL (4.10-5.20); RDW 14.4 % (11.5-14.5); WBC 7.51 X 10*3/uL (4.50-10.00)
== END | disposition home or self-care (01) ==
LOC: LABWHC1 08:48
PROVIDERS: ATTEND Internal Medicine
DX: I10 Essential (primary) hypertension (principal); E78.2 Mixed hyperlipidemia
CPT/HCPCS: 36415; 80053; 80061; 83721; 85027